=== PATIENT | female | born 2000 | race Asian ===

== ENCOUNTER 2024-07-26 13:58 | Emergency (ER) | payer OTHER ==
[2024-07-26 14:58] LABS: Bilirubin Neg (Negative); Blood, Urine Negative (Negative); Glucose, Urine (Dipstick) Normal (Negative); Ketone, Urine Negative (Negative); Leukocyte 25 (Negative); Nitrite Negative (Negative); Protein, Urine (Dipstick) 30 mg/dl (Neg-Trace); Urobilinogen Normal mg/dL (Less than 2)
[2024-07-26 15:01] LABS: Clarity Hazy (Clear)
[2024-07-26 15:57] LABS: Other Microscopic Description Less than 2 mL rec'd
[2024-07-26 15:58] LABS: Calcium Oxalate Crystals 3+ HPF (None Seen)
[2024-07-26 15:59] LABS: Bacteria/HPF 2+ HPF (None Seen); CAUTI Indications for Culture Pregnancy; Mucous/LPF 2+ LPF (<2+); RBC/HPF 0-3 HPF (0-3)
[2024-07-26 16:00] LABS: Urine Culture Reflex Yes Yes
== END 2024-07-26 17:20 | disposition home or self-care (01) ==
LOC: CSHERS 13:58
DX: O98.813 Other maternal infectious and parasitic diseases complicating pregnancy, third trimester (principal); B37.31 Acute candidiasis of vulva and vagina; O46.93 Antepartum hemorrhage, unspecified, third trimester; Z3A.31 31 weeks gestation of pregnancy
CPT/HCPCS: 76815; 81001; 87086

== ENCOUNTER 2024-07-26 17:27 | Day surgery (SDC) | payer OTHER | END 2024-07-26 19:21 | disposition home or self-care (01) | LOC: CSHLD/OP 17:27 | PROVIDERS: ATTEND Family Medicine | DX: O23.593 Infection of other part of genital tract in pregnancy, third trimester (principal); N89.8 Other specified noninflammatory disorders of vagina; O98.813 Other maternal infectious and parasitic diseases complicating pregnancy, third trimester; B37.31 Acute candidiasis of vulva and vagina; B96.89 Other specified bacterial agents as the cause of diseases classified elsewhere; Z79.82 Long term (current) use of aspirin; Z79.899 Other long term (current) drug therapy; Z3A.29 29 weeks gestation of pregnancy | CPT/HCPCS: 76815; 81001; 87086; 87480; 87510; 87660; 99283 ==